=== PATIENT | male | born 1975 ===

== ENCOUNTER 2017-01-19 08:43 | Emergency (ER) | payer OTHER ==
[2017-01-19 09:01] VITALS: TEMP 97.6
[2017-01-19 10:06] LABS: BASO # 0.1 K/uL (0.0-0.2); EOS % 0.5 % (0.0-4.0); HEMATOCRIT 48.8 % (35.0-51.0); LYMPH # 2.7 K/uL (1.0-4.3); LYMPH % 28.9 % (20.0-40.0); MEAN CELL VOLUME 84.4 fL (80.0-94.0); MEAN CORPUSCULAR HEMOGLOBIN 28.2 pg (27.0-31.0); MEAN CORPUSCULAR HGB CONC 33.4 g/dL (33.0-37.0); MEAN PLATELET VOLUME 8.1 fL (7.2-11.7); MONO # 0.7 K/uL (0.0-0.8); MONO % 7.3 % (0.0-10.0); NRBC % 0.1 % (0.0-2.0); RED CELL DISTRIBUTION WIDTH 13.5 % (11.5-14.5); WHITE BLOOD COUNT 9.3 K/uL (4.8-10.8)
[2017-01-19 10:13] LABS: CHLORIDE 96 mmol/L (98-107); SODIUM 134 mmol/L (132-148)
[2017-01-19 10:14] LABS: POTASSIUM 3.9 mmol/L (3.6-5.2)
[2017-01-19 10:16] LABS: ALB/GLOB RATIO 1.7 (1.0-2.1); AST/SGOT 23 U/L (17-59); BILIRUBIN,TOTAL 0.8 mg/dL (0.2-1.3); BLOOD UREA NITROGEN 18 mg/dL (9-20); CARBON DIOXIDE 24 mmol/L (22-30); GFR AFRICAN-AMERICAN > 60; TOTAL PROTEIN 7.7 g/dL (6.3-8.3)
[2017-01-19 10:17] LABS: ALKALINE PHOSPHATASE 158 U/L (38-126); ALT/SGPT 46 U/L (21-72); CALCIUM 8.8 mg/dl (8.6-10.4); GLUCOSE,RANDOM 225 mg/dL (75-110)
--- NOTE | 2017-01-19 10:53 | CT ---
PROCEDURE: CT HEAD WITHOUT CONTRAST. HISTORY: right facial palsy COMPARISON: None available. TECHNIQUE: Axial computed tomography images were obtained through the head/brain without intravenous contrast. Radiation dose: Total exam DLP = 868.26 mGy-cm. This CT exam was performed using one or more of the following dose reduction techniques: Automated exposure control, adjustment of the mA and/or kV according to patient size, and/or use of iterative reconstruction technique. FINDINGS: HEMORRHAGE: No intracranial hemorrhage. BRAIN: No mass effect or edema. No atrophy or chronic microvascular ischemic changes.Please note that MRI with diffusion imaging is more sensitive in the detection of acute ischemic event. VENTRICLES: No hydrocephalus. CALVARIUM: Unremarkable. PARANASAL SINUSES: Unremarkable as visualized. No significant inflammatory changes. MASTOID AIR CELLS: Unremarkable as visualized. No inflammatory changes. OTHER FINDINGS: None. IMPRESSION: No acute intracranial pathology identified. Please note that MRI with diffusion imaging is more sensitive in the detection of acute ischemic event.
[2017-01-19 11:02] VITALS: O2SAT 97
--- NOTE | 2017-01-19 11:29 | C.PDOC ---
History Of Present Illness 41 yr old male accompanied by , presents to the ER with complaints of right ear pain and right sided facial pain for the last 3-4 days. states yesterday the patient developed weakness and right side of face with paresthesia. denies fever, cough, vomiting, abdominal pain or diarrhea. Time Seen by Provider: 01/19/17 09:35 Chief Complaint (Nursing): Weakness/Neurological Deficit History Per: Family () History/Exam Limitations: no limitations Onset/Duration Of Symptoms: Days (3-4) Current Symptoms Are (Timing): Still Present Past Medical History Reviewed: Historical Data, Nursing Documentation, Vital Signs Vital Signs: Last Vital Signs Temp 97.6 F 01/19/17 09:00 Pulse 71 01/19/17 13:58 Resp 20 01/19/17 13:58 BP 110/73 01/19/17 13:58 Pulse Ox 97 01/19/17 13:58 Surgical History: Appendectomy Family History: States: No Known Family Hx - Social History Hx Alcohol Use: No Hx Substance Use: No - Immunization History Hx Tetanus Toxoid Vaccination: No Hx Influenza Vaccination: No Hx Pneumococcal Vaccination: No Review Of Systems Except As Marked, All Systems Reviewed And Found Negative. Constitutional: Positive for: Other ((+) Right facial pain ). Negative for: Fever ENT: Positive for: Ear Pain (Right ear pain ) Respiratory: Negative for: Cough Gastrointestinal: Negative for: Vomiting, Abdominal Pain, Diarrhea Neurological: Positive for: Weakness (Right sided weakness) Physical Exam - Physical Exam Appears: Well, Non-toxic, No Acute Distress Skin: Warm, Dry, Other ((+) Complete right sided facial paralysis, including forehead. ) Head: Atraumatic, Normacephalic Eye(s): bilateral: PERRL, EOMI Ear(s): Bilateral: Normal Nose: Normal, No Discharge Oral Mucosa: Moist Neck: Normal, Normal ROM, Supple Chest: Symmetrical, No Tenderness Cardiovascular: Rhythm Regular, No Murmur Respiratory: Normal Breath Sounds, No Rales, No Rhonchi, No Wheezing Extremity: Normal ROM, No Swelling Neurological/Psych: Oriented x3, Normal Speech, Normal Cognition, No Normal Cranial Nerves (peripheral CN VII palsy), Normal Motor, Normal Sensation ED Course And Treatment - Laboratory Results Result Diagrams: 01/19/17 09:56 06/08/17 09:56 O2 Sat by Pulse Oximetry: 97 - CT Scan/US CT - Head Other Rad Studies (CT/US): Read By Radiologist, Radiology Report Reviewed CT/US Interpretation: PROCEDURE: CT HEAD WITHOUT CONTRAST. HISTORY: right facial palsy. COMPARISON: None available. TECHNIQUE: Axial computed tomography images were obtained through the head/brain without intravenous contrast. Radiation dose: Total exam DLP = 868.26 mGy-cm. This CT exam was performed using one or more of the following dose reduction techniques: Automated exposure control, adjustment of the mA and/or kV according to patient size, and/or use of iterative reconstruction technique. FINDINGS: HEMORRHAGE: No intracranial hemorrhage. BRAIN: No mass effect or edema. No atrophy or chronic microvascular ischemic changes.Please note that MRI with diffusion imaging is more sensitive in the detection of acute ischemic event. VENTRICLES : No hydrocephalus. CALVARIUM: Unremarkable. PARANASAL SINUSES: Unremarkable as visualized. No significant inflammatory changes. MASTOID AIR CELLS: Unremarkable as visualized. No inflammatory changes. OTHER FINDINGS: None. IMPRESSION: No acute intracranial pathology identified. Please note that MRI with diffusion imaging is more sensitive in the detection of acute ischemic event. Progress Note: Spoke to neuro retail parts professional Dr. Gordillo regarding patient who agrees on the plan and reccomends the patient to follow up with Dr. Cat. Patient is treated with Acyclovir and solumedrol. Medical Decision Making Medical Decision Making: PLAN: * CT - Head * CBC * Lyme Disease * Lyme IGG Disposition - Disposition Referrals: Reginaldo Cat MD [Staff Provider] - Wilder Cat MD [Staff Provider] - [facility] [Outside] [facility] [Outside] Disposition: HOME/ ROUTINE Disposition Time: 12:52 Condition: STABLE Additional Instructions: Follow up with Neurologist within 1-2 days. Return to ED if feel worse. 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 - Scribe Statement The provider has reviewed the documentation as recorded by the Scribyolande Duvall All medical record entries made by the Jason were at my direction and personally dictated by me. I have reviewed the chart and agree that the record accurately reflects my personal performance of the history, physical exam, medical decision making, and the department course for this patient. I have also personally directed, reviewed, and agree with the discharge instructions and disposition.
[2017-01-19] MEDS ORDERED: MethylPREDNISolone 40 mg Vial IVP STA (11:58)
[2017-01-19] MEDS ORDERED: Acyclovir 400 MG in Sodium Chloride 0.9% 100 ML IV STA (11:58)
[2017-01-19 12:59] VITALS: RESP 20
[2017-01-19 13:59] VITALS: BP 110/73; PULSE 71
--- NOTE | 2017-01-20 17:47 | CARD ---
APPROVED REPORT EKG Measurement Heart [id number] <Conclusion> Normal sinus rhythm Normal ECG
[2017-01-23 15:50] LABS: LYME IGG NEGATIVE (NEGATIVE)
[2017-01-23 15:54] LABS: LYME IGM POSITIVE (NEGATIVE)
== END 2017-01-19 14:15 | disposition home or self-care (01) ==
LOC: C.ER 08:43
DX: G51.0 Bell's palsy (principal)
CPT/HCPCS: 70450; 80053; 85025; 86618; 93005; 96374; 99285; J0133; J2920